=== PATIENT | male | born 1980 | race Two or more races ===

== ENCOUNTER → 2024-12-09 | Outpatient (CLI) | payer OTHER, SELFPAY ==
--- NOTE | 2024-12-09 13:00 | XR_ITS ---
Examination: Testicular sonography complete TECHNIQUE: Grayscale sonographic images testes, assessment arterial inflow venous outflow Doppler spectral analysis carful analysis Date and time: December 09, 2024 1344 hours INDICATIONS: Left testicular lump noticed beginning 7 years ago. FINDINGS: Right testis 5.0 cm epididymis 15 mm No testicular torsion or testicular mass Mild hydrocele Left testis 5.0 cm epididymis 15 mm Left epididymal cyst 5.0 x 3.9 cm Arterial flow testicle Cystic mass in the testicle 2.3 x 0.9 cm Arterial flow testicle IMPRESSION: No testicular torsion or testicular mass Large left epididymal cyst Probable tubular ectasia in the left testis, recommend 3 month follow-up
== END | disposition home or self-care (01) ==
PROVIDERS: PCP Specialist; Referring Provider Specialist; Visit Provider Specialist
DX: N44.2 Benign cyst of testis (principal)
CPT/HCPCS: 76870